=== PATIENT | female | born 1990 | race Caucasian/White ===

== ENCOUNTER → 2016-09-07 | Outpatient (CLI) | payer OTHER ==
[~2016-09-07] MED LIST: ACETAMINOPHEN PO; ALBUTEROL17 GM INH; CIPRO PO; CIPROFLOXACIN500 M1 PO; DELTASONE20 MG PO; NO MEDICATIONS; PRENATAL1 TA1; VISTARIL PO; VOLTAREN75 MG PO; ZITHROMAX PO; ZOFRAN ODT4 MG PO
--- NOTE | ~2016-09-07 | CT7 ---
[facility] A Service [facility] RADIOLOGY TEXT RESULTS PATIENT: SARAH BROWN LOCATION: [facility] : 91 UNIT #: [id number] AGE: [address]: Franklin Suárez MD SEX: F ORDER DR: [id number] [facility] [address] [place], [place] [address] [id number] O MR#: [id number] Acc #: [id number] NAME: SARAH BROWN. : 1990 SEX: F STUDY DATE/TIME: 09/07/2016 16:45 UNIT: [facility] ROOM: STUDY DESCRIPTION: CT Abdomen Wo Cont Attending Physician: Franklin Suárez M.D. Referring Physician: Franklin Suárez M.D. Ordering Physician: Franklin Suárez M.D. Primary Care Physician: Vee Worrell M.D. MEDICAL IMAGING REPORT This report is preliminary unless electronic signature is present EXAM CT abdomen without contrast. INDICATION Epigastric region pain for the past week. History of previous hernia repair. PROCEDURE Unenhanced CT of the abdomen. This CT exam was performed with one or more of the following radiation dose reduction techniques: automatic exposure control, adjustment of mA and/or kV according to patient size, and iterative reconstruction. COMPARISON None FINDINGS Included lung bases clear. No liver or splenic lesion. Kidneys, adrenal glands, pancreas, gallbladder have an unremarkable unenhanced appearance. The bowel loops are nondilated. No aggressive appearing bone lesion. IMPRESSION 1. No acute findings. 2. Thought no mentioned above, there is evidence of previous ventral hernia repair with mesh material. No evidence for reherniation. Dictated by... Thierry Escudero M.D. THIS IS AN ELECTRONICALLY VERIFIED REPORT [facility] A Service [facility] RADIOLOGY TEXT RESULTS PATIENT: SARAH BROWN LOCATION: [facility] : 91 UNIT #: [id number] AGE: [address]: Franklin Suárez MD SEX: F ORDER DR: Thierry Escudero M.D. at 09/09/2016 2:17 PM EED/[place] TD: 09/08/2016 16:46 JOB #: [id number] MEDICAL IMAGING REPORT Page 1 of 1 COPY
== END | disposition home or self-care (01) ==
LOC: CCAT 15:53
DX: G89.18 Other acute postprocedural pain (principal); R10.9 Unspecified abdominal pain; Z98.890 Other specified postprocedural states
CPT/HCPCS: 74150; 84703